=== PATIENT | female | born 1955 | race Caucasian/White ===

== ENCOUNTER 2020-10-04 10:12 | Emergency (ER) | payer OTHER, SELFPAY ==
--- NOTE | 2020-10-04 10:52 | XR_ITS ---
EXAMINATION: XR CHEST CLINICAL INFORMATION: Chest pain, shoulder pain. COMPARISON: Radiographs left shoulder 10/04/2020, chest radiographs 06/03/2017 TECHNIQUE: Frontal view of the chest was obtained. FINDINGS: There is chronic elevation left diaphragm with interposition of the splenic flexure left colon. The heart is further rotated to the right since prior exam 2016. There is subsegmental atelectasis right lateral base. The vascularity is normal. There is no pneumothorax or pleural reaction. No lobar or segmental airspace consolidation or lobar or segmental atelectasis. Visualized mediastinal contours and bony structures are unremarkable. XR/XR chest 1V IMPRESSION: 1. Chronic elevation left diaphragm. Subsegmental atelectasis right lateral base. 2. Heart rotated towards right. Vascularity normal. No pneumothorax, airspace consolidation, or effusion.
--- NOTE | 2020-10-04 10:52 | XR_ITS ---
EXAMINATION: XR SHOULDER, LEFT CLINICAL INFORMATION: Chest pain, shoulder pain COMPARISON: Chest radiograph 10/04/2020 TECHNIQUE: Frontal and lateral views of the left shoulder are obtained for 2 views. FINDINGS: There is no fracture, dislocation, destructive process. The acromioclavicular alignment is normal. No visible rotator cuff calcifications. XR/XR shoulder LT min 2V IMPRESSION: Unremarkable left shoulder.
[2020-10-04 10:53] VITALS: BP 155/82; PULSE 94; RESP 18; TEMP 36.6; O2SAT 98; BMI 24.1
--- NOTE | 2020-10-04 10:55 | ED.URI ---
HPI - URI/Sore Throat General Chief Complaint: General Medical Stated Complaint: pneumonia Time Seen by Provider: 10/04/20 10:52 History of Present Illness HPI Narrative: Patient is a 65-year-old female presents today with having pain to the left shoulder. Worse with movement. Pain dull in nature. Patient claims that she has had similar pain when she had pneumonia in the past. No coughing or congestion or upper respiratory symptoms no shortness of breath no diaphoresis. No history of diabetes positive history of high cholesterol never smoked never had a heart attack. 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 She is currently on Xarelto. History of atrial fibrillation. No trauma. The pain lasts a few sec in each time. Improved with rest. Related Data Allergies Allergy/AdvReac Type Severity Reaction Status Date / Time aspirin [ASA] Allergy Unknown STOMACH Unverified 07/25/20 15:54 UPSET ibuprofen Allergy Unknown hx GI bleed Verified 10/16/19 00:00 venlafaxine Allergy Unknown vomiting Verified 10/16/19 00:00 Aspirin Allergy Unknown Upsets Uncoded 09/23/11 00:00 stomach ulcer Ibuprofen Allergy Unknown Upsets Uncoded 09/23/11 00:00 stomach ulcer NSAIDS(NON-STEROIDAL Allergy Unknown hx of GI Uncoded 10/16/19 00:00 ANTI-INFL bleed Review of Systems Review of Systems: Constitutional: No Weight loss, No Fever, No Chills, No Night Sweats, No Fatigue, No Malaise ENT/Mouth: No Hearing loss, No Ear Pain, No Nasal Congestion, No Sinus Pain, No Hoarseness, No sore throat, No Rhinorrhea, No Swallowing Difficulty Eyes: No Eye Pain, No Swelling, No Redness, No Foreign Body, No Discharge, No Vision Changes Cardiovascular: Positive Chest Pain, No SOB, No Dyspnea on Exertion, No Orthopnea, No Edema, No Palpitations Respiratory: No Cough, No Sputum, No Wheezing, No Smoke Exposure, No Dyspnea Gastrointestinal: No Nausea, No Vomiting, No Diarrhea, No Constipation, No abdominal Pain, No Hematochezia, No Melena Genitourinary: no irregular bleeding, No Dysuria, No Urinary Frequency, No Hematuria, No Urinary Incontinence, No Urgency, No Flank Pain, No Urinary Flow Changes, No Hesitancy Musculoskeletal: No joint pain, No Myalgias, No Joint Swelling Skin: No Skin Lesions, No rash Neuro: No Weakness, No Numbness, No Paresthesias, No Loss of Consciousness, No Dizziness, No Headache Psych: No Anxiety/Panic, No Depression, No SI/HI/AH/VH, No Social Issues, Heme/Lymph: No Bruising, No Bleeding,No Lymphadenopathy Endocrine: No Polyuria, No Polydipsia, No Temperature Intolerance PMFSH Past Medical History Attestation statement: The following information was validated with the patient. Medical History Afib GI bleed HTN (hypertension) Pneumonia Stroke Surgical History H/O wrist surgery Social History Social History Alcohol intake: current Alcohol intake frequency: holidays/special occasions only Smoking Status: Former smoker Smoked in Last 30 Days: No Use of substances other than those prescribed or required for medical reasons: No Advance Directives: No Advance Directives Information Provided: No Physical Exam Vital Signs: Vital Signs: Last Vital Signs Temp 97.8 F 10/04/20 10:53 Pulse 94 10/04/20 10:53 Resp 18 10/04/20 10:53 BP 155/82 H 10/04/20 10:53 Pulse Ox 98 10/04/20 10:53 Body Mass Index 24.1 Appearance: Alert. Oriented X3. No acute distress. Eyes: Pupils equal, round and reactive to light. ENT: Pharynx normal. Neck: Normal inspection. Neck supple. No lymph nodes noted. No crepitus CVS: Normal heart rate and rhythm. Pulses normal. Normal S1 and S2 Respiratory: No respiratory distress. Breath sounds normal. No Wheezing. No rales Abdomen: Soft and nontender. No rigidity. No distention. good BS x4 Skin: Skin warm and dry. Normal skin color. Normal skin turgor. Extremities: No lower extremity edema. Neurovascular intact to all extremities. No Lacerations. No Rash Neuro: Oriented X 3. No motor deficit. No sensory deficit. Moving all extermities. No slurred speech MDM - URI/Sore Throat MDM Narrative Medical decision making narrative: Patient's x-ray of the chest was negative for any acute evidence of pneumonia, pneumothorax. X-ray of the shoulder showed no fracture and no malalignment. Will discharge patient home. No chest pain or shortness of breath no diaphoresis unlikely cardiac in origin. Patient pain is worse with certain position consistent with musculoskeletal pain. Will discharge patient home close follow-up outpatient basis. Medical Records Attestation: I reviewed the patient's medical records. Lab Data Attestation: I reviewed the patient's lab results. Discharge Plan Discharge Clinical Impression: Acute shoulder pain Patient Disposition: Home, Self-Care Instructions: Shoulder Sprain (ED)
== END 2020-10-04 11:51 | disposition home or self-care (01) ==
PROVIDERS: Emergency Provider Emergency Medicine Emergency Medical Services; PCP Family Medicine
DX: M25.512 Pain in left shoulder (principal); J18.9 Pneumonia, unspecified organism; Z87.891 Personal history of nicotine dependence; Z79.899 Other long term (current) drug therapy
CPT/HCPCS: 71045; 73030; 99283

== ENCOUNTER 2021-03-05 16:28 | Emergency (ER) | payer OTHER, SELFPAY ==
--- NOTE | ~2021-03-05 | XR_ITS ---
EXAMINATION: XR KNEE, LEFT CLINICAL INFORMATION: Fall. Pain. Swelling. COMPARISON: None TECHNIQUE: Four views of the left knee. FINDINGS: At the lateral femoral condyle there is a irregular piece of bone measuring about 5 x 4 mm which is likely an avulsion fracture. Fracture fragment is slightly displaced. There is edema around the knee which is most significant anteriorly and laterally. Probable small joint effusion. There is a linear metallic foreign body, needle like object, measuring 1 cm in length in the anterior soft tissues of the knee inferior to the patella. XR/XR knee LT 3V IMPRESSION: 1. Small avulsion fracture fragment from the lateral femoral condyle 2. Significant soft tissue swelling around the knee. Probable small joint effusion. 3. Needle like metallic foreign body soft tissues at the anterior knee.
[2021-03-05 17:03] VITALS: BP 141/81; PULSE 100; RESP 18; TEMP 36.1; O2SAT 100; BMI 23.6
[2021-03-05 19:11] VITALS: BP 143/98; PULSE 109; RESP 16; TEMP 36.6; O2SAT 99
--- NOTE | 2021-03-05 19:40 | ED_ITS ---
HPI - Extremity Injury (Lower) General Chief Complaint: Extremity Injury, Lower Stated Complaint: KNEE PAIN - FALL Time Seen by Provider: 03/05/21 19:08 Source: patient Mode of arrival: ambulatory Limitations: no limitations History of Present Illness HPI Narrative: 66-year-old female with past medical history of AFib on Xarelto, hypertension, history of CVA without any residual deficits, presents with injury to left knee sustained from a fall in a parking lot yesterday. She was evaluated in Urgent Care, and they stated that they saw something in the x-ray of her knee. Her knee is swollen, circumferentially bruised with a swollen calf. Patient states that she is able to ambulate but is concerned because the bruising has darkened. Related Data Allergies Allergy/AdvReac Type Severity Reaction Status Date / Time aspirin [ASA] Allergy Unknown STOMACH Unverified 07/25/20 15:54 UPSET ibuprofen Allergy Unknown hx GI bleed Verified 10/16/19 00:00 venlafaxine Allergy Unknown vomiting Verified 10/16/19 00:00 Aspirin Allergy Unknown Upsets Uncoded 09/23/11 00:00 stomach ulcer Ibuprofen Allergy Unknown Upsets Uncoded 09/23/11 00:00 stomach ulcer NSAIDS(NON-STEROIDAL Allergy Unknown hx of GI Uncoded 10/16/19 00:00 ANTI-INFL bleed Review of Systems Review of Systems: Constitutional: No Fever, No Chills ENT/Mouth: No Ear Pain, No Hoarseness, No sore throat Eyes: No Eye Pain, No Swelling, No Redness, No Foreign Body Cardiovascular: No Chest Pain, No SOB Respiratory: No Cough, No Dyspnea Gastrointestinal: No Nausea, No Vomiting, No Diarrhea, No abdominal Pain Genitourinary: No Dysuria, No Hematuria Musculoskeletal: positive left knee pain and swelling, No Myalgias Skin: Left knee bruising, No Skin lacerations, No rash Neuro: No Weakness, No Numbness, No Paresthesias, No Loss of Consciousness, No Dizziness, No Headache Psych: No Anxiety/Panic, No Depression Heme/Lymph: no easy bruising, no Lymphadenopathy Endocrine: No Polyuria, No Polydipsia Yes all other systems are reviewed and are negative PMFSH Past Medical History Attestation statement: The following information was validated with the patient. Source: old records reviewed Medical History Afib GI bleed HTN (hypertension) Pneumonia Stroke Surgical History H/O wrist surgery Social History Social History Alcohol intake: current Alcohol intake frequency: holidays/special occasions only Smoking Status: Former smoker Advance Directives: No Advance Directives Information Provided: Yes Physical Exam Vital Signs: Vital Signs: Last Vital Signs Temp 98.2 F 03/05/21 21:43 Pulse 110 H 03/06/21 00:16 Resp 16 03/06/21 00:16 BP 145/85 H 03/06/21 00:16 Pulse Ox 94 03/06/21 00:16 Body Mass Index 23.6 Appearance: Alert. Oriented X3. Mild distress. Eyes: Pupils equal, round and reactive to light. ENT: Pharynx normal. Neck: Normal inspection. Neck supple. CVS: Normal heart rate and rhythm. Pulses normal. Respiratory: No respiratory distress. Breath sounds normal. Abdomen: Soft and nontender. Skin: Skin warm and dry. Normal skin color. Normal skin turgor. Extremities: Significant left knee bruising and swelling, decreased range of motion secondary to swelling. Neuro: No motor deficit. No sensory deficit. Course Course Course Narrative: 66-year-old female presents for left knee pain and swelling after a fall injury. She was evaluated in urgent care yesterday, with concerns of a foreign body in her knee. X-rays indicate foreign body of unknown origin, patient states that as a child she did have a knee injury and thinks that this could be from that injury. There is no indication of a penetrating injury to the knee on visual inspection. While significantly swollen and bruised there are no puncture wounds. X-rays do indicate small avulsion fracture, Discussion with Orthopedics, plan is to Azar wrap, give p.o. antibiotics, and patient will follow-up in the office. Patient does have a prescription for Percocet. Patient is on Xarelto at this time, low likelihood of DVT. Patient will follow-up with orthopedics and will call in the morning. Patient verbalized understanding of and agrees to plan of care discharge home. Consultations Consultation #1: [place] Time: 23:30 MDM - Extremity Injury (Lower) MDM Narrative Medical decision making narrative: Hemarthrosis, septic joint, effusion, dislocation Differential Diagnosis Differential diagnosis: Likely acute internal derangement of knee Medical Records Attestation: I reviewed the patient's medical records. Lab Data Attestation: I reviewed the patient's lab results. Result diagrams: 03/05/21 20:06 03/05/21 20:06 Labs: Lab Results 03/05/21 03/05/21 03/05/21 Range/Units 20:06 20:06 20:06 WBC 10.3 (4.8-10.8) X10*3/uL RBC 3.46 L (4.20-5.50) X10*6/uL Hgb 11.6 L (12.0-16.0) g/dl Hct 34.6 L (37-47) % MCV 100.0 H (80-98) fL MCH 33.5 H (27.0-33.0) pg MCHC 33.5 (31.0-35.0) g/dl RDW 13.6 (11.0-16.0) % Plt Count 447 H (160-400) X10*3/uL MPV 10.1 (9.4-12.3) fL Immature Gran % (Auto) 0.2 (0.0-0.4) % Neut % (Auto) 69.6 (45-73) % Lymph % (Auto) 19.2 L (20-40) % [place] % (Auto) 9.9 (2-11) % Eos % (Auto) 0.5 (0-4) % Baso % (Auto) 0.6 (0-2) % Lymph # (Auto) 2.0 (1.2-4.9) X10*3/uL [place] # (Auto) 1.0 (0.1-1.2) X10*3/uL Eos # (Auto) 0.1 (0.0-0.4) X10*3/uL Baso # (Auto) 0.1 (0.0-0.2) X10*3/uL Abs Immat Gran (auto) 0.02 (0.00-0.03) X10*3/uL Absolute Neuts (auto) 7.2 (2.0-8.3) X10*3/uL Absolute Nucleated RBC 0.000 (0.0-0.012) X10*3/uL Nucleated RBC % (auto) 0.0 (0.0-0.2) /100WBC PT 28.8 H (10.8-13.0) SEC INR 2.4 H (0.9-1.1) APTT 52.3 H (24.1-38.0) SEC Sodium 136 (135-145) mmol/L Potassium 3.5 (3.3-5.1) mmol/L Chloride 96 (96-108) mmol/L Carbon Dioxide 26 (22-29) mmol/L Anion Gap 18 (12-20) BUN 13 (9-16) mg/dL Creatinine 0.73 (0.5-1.4) mg/dL Estim Creat Clear Calc 58.7 Estimated GFR > 60 Random Glucose 110 (60-115) mg/dL Lactic Acid (0.5-2.0) mmol/L Calcium 9.8 (8.4-10.2) mg/dL Total Bilirubin 0.8 (0.0-1.0) mg/dL Direct Bilirubin 0.4 (0.0-0.5) mg/dL AST 28 (5-31) U/L ALT 17 (0-31) U/L Alkaline Phosphatase 110 (39-117) U/L Total Protein 8.0 (6.5-8.0) g/dL Albumin 4.6 (3.5-5.0) g/dL Lipase 14 (8-78) U/L Urine Color Urine Appearance Urine pH (5.0-8.0) Ur Specific [place] (1.005-1.025) Urine Protein (NEG-TRACE) MG/DL Urine Glucose (UA) (NEG) MG/DL Urine Ketones (NEG) MG/DL Urine Blood (NEG) Urine Nitrite (NEG) Ur Leukocyte Esterase (NEG) Urine RBC (0) /HPF Urine WBC (0-4) /HPF Ur Squamous Epith Cells /LPF Urine Bacteria /LPF 03/05/21 03/05/21 Range/Units 20:06 20:06 WBC (4.8-10.8) X10*3/uL RBC (4.20-5.50) X10*6/uL Hgb (12.0-16.0) g/dl Hct (37-47) % MCV (80-98) fL MCH (27.0-33.0) pg MCHC (31.0-35.0) g/dl RDW (11.0-16.0) % Plt Count (160-400) X10*3/uL MPV (9.4-12.3) fL Immature Gran % (Auto) (0.0-0.4) % Neut % (Auto) (45-73) % Lymph % (Auto) (20-40) % [place] % (Auto) (2-11) % Eos % (Auto) (0-4) % Baso % (Auto) (0-2) % Lymph # (Auto) (1.2-4.9) X10*3/uL [place] # (Auto) (0.1-1.2) X10*3/uL Eos # (Auto) (0.0-0.4) X10*3/uL Baso # (Auto) (0.0-0.2) X10*3/uL Abs Immat Gran (auto) (0.00-0.03) X10*3/uL Absolute Neuts (auto) (2.0-8.3) X10*3/uL Absolute Nucleated RBC (0.0-0.012) X10*3/uL Nucleated RBC % (auto) (0.0-0.2) /100WBC PT (10.8-13.0) SEC INR (0.9-1.1) APTT (24.1-38.0) SEC Sodium (135-145) mmol/L Potassium (3.3-5.1) mmol/L Chloride (96-108) mmol/L Carbon Dioxide (22-29) mmol/L Anion Gap (12-20) BUN (9-16) mg/dL Creatinine (0.5-1.4) mg/dL Estim Creat Clear Calc Estimated GFR Random Glucose (60-115) mg/dL Lactic Acid 1.2 (0.5-2.0) mmol/L Calcium (8.4-10.2) mg/dL Total Bilirubin (0.0-1.0) mg/dL Direct Bilirubin (0.0-0.5) mg/dL AST (5-31) U/L ALT (0-31) U/L Alkaline Phosphatase (39-117) U/L Total Protein (6.5-8.0) g/dL Albumin (3.5-5.0) g/dL Lipase (8-78) U/L Urine Color YELLOW Urine Appearance CLEAR Urine pH 6.0 (5.0-8.0) Ur Specific [place] 1.020 (1.005-1.025) Urine Protein TRACE (NEG-TRACE) MG/DL Urine Glucose (UA) NEG (NEG) MG/DL Urine Ketones 15 (NEG) MG/DL Urine Blood NEG (NEG) Urine Nitrite NEG (NEG) Ur Leukocyte Esterase TRACE H (NEG) Urine RBC 0 (0) /HPF Urine WBC 0-2 (0-4) /HPF Ur Squamous Epith Cells 1+ /LPF Urine Bacteria 1+ /LPF Imaging Data Left knee x-ray: Attestation: I personally reviewed and interpreted this imaging study as follows: Radiologist's impression: EXAMINATION: XR KNEE, LEFT CLINICAL INFORMATION: Fall. Pain. Swelling. COMPARISON: None TECHNIQUE: Four views of the left knee. FINDINGS: At the lateral femoral condyle there is a irregular piece of bone measuring about 5 x 4 mm which is likely an avulsion fracture. Fracture fragment is slightly displaced. There is edema around the knee which is most significant anteriorly and laterally. Probable small joint effusion. There is a linear metallic foreign body, needle like object, measuring 1 cm in length in the anterior soft tissues of the knee inferior to the patella. XR/XR knee LT 3V IMPRESSION: 1. Small avulsion fracture fragment from the lateral femoral condyle 2. Significant soft tissue swelling around the knee. Probable small joint effusion. 3. Needle like metallic foreign body soft tissues at the anterior knee. Discharge Plan Discharge Clinical Impression: Avulsion fracture, Foreign body (FB) in soft tissue, Hematoma and contusion, Acute pain of left knee Patient Disposition: Home, Self-Care Instructions: Soft Tissue Foreign Body (ED), Hematoma (ED), Avulsion Fracture (ED) Additional Instructions: You were evaluated for left knee pain, swelling and bruising after a fall injury yesterday. X-rays indicate an avulsion fracture that is small, and a foreign body of unknown etiology. Please keep Azar wrap in place, use crutches for ambulation. Follow-up with orthopedics, call tomorrow make appointment. You do have a current prescription for Percocet. Please use this medication for pain management. Thank you for choosing this emergency department for evaluation. Please follow-up with primary care physician as needed. Return to the emergency department for any new, concerning, or worsening symptoms.
[2021-03-05] MEDS: ondansetron HCL 4 MG/2 ML VIAL IVPUSH (20:07)
[2021-03-05] MEDS: Morphine Sulfate 4 MG/ML CARTRIDGE IVPUSH (20:07)
[2021-03-05 20:14] LABS: MANUAL DIFF FLAG NO
[2021-03-05 20:16] LABS: Basophils Absolute Auto 0.1 X10*3/uL (0.0-0.2); Basophils Percent Auto 0.6 % (0-2); Eosinophils Absolute Auto 0.1 X10*3/uL (0.0-0.4); Eosinophils Percent Auto 0.5 % (0-4); Hematocrit 34.6 % (37-47); Hemoglobin 11.6 g/dl (12.0-16.0); Imm Gran Abs Auto 0.02 X10*3/uL (0.00-0.03); Imm Gran Pct Auto 0.2 % (0.0-0.4); Lymphocytes Percent Auto 19.2 % (20-40); Mean Corpuscular HGB Conc 33.5 g/dl (31.0-35.0); Mean Corpuscular Hemoglobin 33.5 pg (27.0-33.0); Mean Platelet Volume 10.1 fL (9.4-12.3); Monocytes Percent Auto 9.9 % (2-11); Neutrophils Absolute Auto 7.2 X10*3/uL (2.0-8.3); Neutrophils Percent Auto 69.6 % (45-73); Platelet Count 447 X10*3/uL (160-400); Red Blood Count 3.46 X10*6/uL (4.20-5.50); Red Cell Distribution Width 13.6 % (11.0-16.0); White Blood Count 10.3 X10*3/uL (4.8-10.8)
[2021-03-05 20:17] LABS: Appearance Urine CLEAR; Color Urine YELLOW; Glucose Urine UA NEG (NEG); Leukocyte Esterase Urine TRACE (NEG); Nitrite Urine NEG (NEG); Urine Blood NEG (NEG); Urine Ketones 15 MG/DL (NEG); Urine Protein TRACE MG/DL (NEG-TRACE)
[2021-03-05 20:23] LABS: Bacteria Urine 1+ /LPF; RBC Urine 0 /HPF (0); Squamous Epithelial Cell Urine 1+ /LPF; WBC Urine 0-2 /HPF (0-4)
[2021-03-05 20:35] LABS: INTERNATIONAL NORM RATIO 2.4 (0.9-1.1); Lactic Acid 1.2 mmol/L (0.5-2.0); Prothrombin Time 28.8 SEC (10.8-13.0)
[2021-03-05 20:38] LABS: Partial Thromboplastin Time 52.3 SEC (24.1-38.0)
[2021-03-05 20:39] LABS: Alanine Aminotransferase 17 U/L (0-31); Albumin Level 4.6 g/dL (3.5-5.0); Alkaline Phosphatase 110 U/L (39-117); Anion Gap 18 (12-20); Aspartate Amino Transferase 28 U/L (5-31); Bilirubin Direct 0.4 mg/dL (0.0-0.5); Bilirubin Total 0.8 mg/dL (0.0-1.0); Blood Urea Nitrogen 13 mg/dL (9-16); Calcium 9.8 mg/dL (8.4-10.2); Carbon Dioxide 26 mmol/L (22-29); Chloride 96 mmol/L (96-108); Creatinine Clr Calc Pharmacy 58.7; Estimated Glomerular Filt Rate > 60; Glucose Random 110 mg/dL (60-115); Lipase 14 U/L (8-78); Potassium 3.5 mmol/L (3.3-5.1); Sodium 136 mmol/L (135-145)
[2021-03-05 21:43] VITALS: BP 140/77; PULSE 104; RESP 16; TEMP 36.8; O2SAT 96
[2021-03-06] MEDS: Amoxicillin/Potassium Clav 875 MG TABLET PO (00:14)
[2021-03-06 00:16] VITALS: BP 145/85; PULSE 110; RESP 16; O2SAT 94
--- NOTE | 2021-03-06 01:03 | PC.NURSE ---
LEFT KNEE BRUISED AND SWOLLEN, WRAPPED IN MIKY BANDAGE PER PROVIDER INSTRUCTIONS. PT REFUSED OXYCODONE. PT READY FOR DISCHARGE, ASKED TO STAY UNTIL DAYLIGHT, UNABLE TO DRIVE AT NIGHT.
--- NOTE | 2021-03-06 04:36 | PC.NURSE ---
PT HAS BEEN SLEEPING, ANBULATORY WITH STEADY GAIT AND SLIGHT LIMP TO BATHROOM ON HER OWN.
--- NOTE | 2021-03-06 06:17 | PC.NURSE ---
PT ASKING FOR PAIN MEDICATION, UNABLE TO ADMINISTER WHEN REQUESTED 15 MINUTES AGO, PT PLANS ON DRIVING HERSELF HOME. PT REFUSED OXY 3-4 HOURS AGO.
== END 2021-03-06 06:19 | disposition home or self-care (01) ==
PROVIDERS: Nurse Practitioner Family; Emergency Provider Internal Medicine; PCP Family Medicine
DX: S82.002A Unspecified fracture of left patella, initial encounter for closed fracture (principal); S80.02XA Contusion of left knee, initial encounter; M25.562 Pain in left knee; M60 Myositis; W01.0XXA Fall on same level from slipping, tripping and stumbling without subsequent striking against object, initial encounter; Y93.9 Activity, unspecified; Y92.481 Parking lot as the place of occurrence of the external cause; Y99.9 Unspecified external cause status; Z79.899 Other long term (current) drug therapy
CPT/HCPCS: 36415; 73562; 80048; 80076; 81001; 83605; 83690; 85025; 85610; 85730; 87040; 96374; 96375; 99284; J2270; J2405

== ENCOUNTER 2021-03-18 07:53 | Outpatient (REF) | payer OTHER, SELFPAY ==
--- NOTE | ~2021-03-18 | XR_ITS ---
EXAMINATION: XR KNEE, LEFT CLINICAL INFORMATION: Left knee pain. COMPARISON: 02/25/2021 TECHNIQUE: Carbon view of the left knee. FINDINGS: On this single view, no acute fracture or dislocation is evident. There was noted to be a small avulsion fracture fragment about the lateral distal femur. On today's study, there is again noted to be a needle-like metallic foreign body overlying the region of the medial portion of the patellar tendon. There appears to be some edematous change about the anterior knee soft tissues. XR/XR knee LT 2V IMPRESSION: Linear metallic density with the appearance of a needle overlying the patellar tendon.
== END 2021-03-18 07:54 | disposition home or self-care (01) ==
LOC: HO.HOSX 07:53
PROVIDERS: Visit Provider Physician Assistant
DX: S80.02XA Contusion of left knee, initial encounter (principal)
CPT/HCPCS: 73560; 99202

== ENCOUNTER 2025-03-30 12:59 | Outpatient (REF) | payer MEDICARE, SELFPAY ==
--- NOTE | ~2025-03-30 | XR_ITS ---
EXAMINATION: XR TIBIA AND FIBULA, RIGHT CLINICAL INFORMATION: DEFORMITIES OF RIGHT LOWER LEG. COMPARISON: December 17, 2023. TECHNIQUE: AP and lateral views of the right tibia and fibula were obtained. FINDINGS: Callus formation and proximal diaphysis of the femur. No acute cortical disruption. No lytic or blastic lesions. Degenerative changes involving mostly the lateral compartment of the knee. XR/XR tibia fibula RT 2V IMPRESSION: Old traumatic deformity proximal diaphysis right fibula. Lateral compartment osteoarthrosis, right knee. Electronically signed by: Toni Wren MD 03/30/2025 01:58 PM EDT
--- NOTE | ~2025-03-30 | XR_ITS ---
EXAMINATION: X-ray lumbar spine CLINICAL INFORMATION: Lumbar disc disorder radiculopathy TECHNIQUE: AP oblique and lateral views. COMPARISON: None FINDINGS: There is some S-shaped curvature of the thoracolumbar spine with a levoconvex rotatory component apex at L3-4. Multilevel marginal osteophyte formation and endplate sclerosis decreased intervertebral disc height from L1-2 to L5-S1. No acute cortical disruption or gross malalignment. No lytic or blastic lesions. Sutures in the left upper quadrant abdomen. Round calcification overlapping the left hemisacrum. Vascular complications. XR/XR lumbar spine 4V min IMPRESSION: Multilevel thoracolumbar spondylosis and scoliosis without acute fracture or gross listhesis. Probable calcified uterine fibroid. Electronically signed by: Toni Wren MD 03/30/2025 01:57 PM EDT
== END 2025-03-30 13:00 | disposition home or self-care (01) ==
LOC: HO.HMGCX 12:59
PROVIDERS: PCP Family Medicine; Visit Provider Nurse Practitioner Adult Health
DX: M51.16 Intervertebral disc disorders with radiculopathy, lumbar region (principal); M48.062 Spinal stenosis, lumbar region with neurogenic claudication; M21.861 Other specified acquired deformities of right lower leg
CPT/HCPCS: 72110; 73590

== ENCOUNTER → 2025-03-30 13:07 | Outpatient (BNV) | payer MEDICARE, SELFPAY | PROVIDERS: PCP Family Medicine; Visit Provider Radiology Diagnostic Radiology | DX: M47.895 Other spondylosis, thoracolumbar region (principal); M17.11 Unilateral primary osteoarthritis, right knee | CPT/HCPCS: 72110; 73590 ==

== ENCOUNTER 2025-05-17 10:51 | Outpatient (RCR) | payer MEDICARE, OTHER, SELFPAY | END 2025-06-27 11:49 | disposition home or self-care (01) | LOC: HO.PT 10:51 | PROVIDERS: PCP Family Medicine; Visit Provider Nurse Practitioner Adult Health | DX: M21.861 Other specified acquired deformities of right lower leg (principal); M48.062 Spinal stenosis, lumbar region with neurogenic claudication; M51.16 Intervertebral disc disorders with radiculopathy, lumbar region | CPT/HCPCS: 97110; 97140; 97163 ==